=== PATIENT | male | born 1970 | race Caucasian/White ===

== ENCOUNTER 2017-10-16 10:25 | Emergency (ER) | payer MEDICARE, MEDICAID ==
[2017-10-16] MEDS ORDERED: Ondansetron INJ* 2 MG/ML VIAL IV ONE (11:14)
[2017-10-16] MEDS ORDERED: NS 0.9% 1000 ML* 1,000 ML IV ONE ×2 (11:14→13:56)
[2017-10-16 12:41] LABS: ABS Basophils 0 10^3/ul (0-0.2); ABS Eosinophils 0 10^3/ul (0-0.6); ABS Lymphocytes 1.1 10^3/ul (1.0-4.8); ABS Monocytes 0.6 10^3/ul (0-0.8); ABS Neutrophils 4.3 10^3/ul (1.5-7.7); ABS Nucleated RBC 0 10^3/ul; Eosinophil % 0.5 % (0-6); Hematocrit 41 % (42-52); Lymphocyte % 17.7 % (25-47); Mean Corpuscular HGB Conc 35 g/dl (31-36); Mean Corpuscular Hemoglobin 31 pg (27-31); Mean Corpuscular Volume 91 fL (80-94); Mean Platelet Volume 8 um3 (7.4-10.4); Nucleated Red Blood Cells % 0.1; Platelet Count 143 10^3/ul (150-450); Red Blood Count 4.48 10^6/ul (4.0-5.4); Red Cell Distribution Width 14 % (10.5-15); White Blood Count 5.9 10^3/ul (3.5-10.8)
--- NOTE | 2017-10-16 12:55 | RAD ---
Indication: Cough. Single frontal view of the chest performed at 1235 hours was reviewed. Comparison is made with previous exam dated February 10, 2015. No mediastinal shift is noted. Heart is of normal size and configuration. Lung winters appear clear. IMPRESSION: NO ACTIVE CARDIOPULMONARY DISEASE IS NOTED.
[2017-10-16 13:10] LABS: EGFR Non-African American 67.1 (>60)
[2017-10-16 14:25] LABS: Urine Appearance Clear; Urine Blood Negative (Negative); Urine Color Yellow; Urine Ketones Negative (Negative); Urine Protein Negative (Negative); Urine Specific Gravity 1.003 (1.010-1.030); Urine Urobilinogen Negative (Negative)
--- NOTE | 2017-10-16 17:11 | ED ---
Donna Lara Thomas, scribed for Aguila Sinclair MD on 10/16/17 at 1141 . Syncope/Near Syncope - HPI Summary HPI Summary: The patient is a 47 year old male complaining of an episode of syncope that occurred this morning. The patient additionally complains of a cough, nausea, runny nose and fatigue. The patient notes that he has received a flu shot. - History Of Current Complaint Chief Complaint: EDSyncope Time Seen by Provider: 10/16/17 10:40 Hx Obtained From: Patient Onset/Duration: Sudden Onset Aggravating Factor(s): Nothing Alleviating Factor(s): Nothing Associated Signs And Symptoms: Weakness, Other - nausea and cough - Allergies/Home Medications Allergies/Adverse Reactions: Allergies Allergy/AdvReac Type Severity Reaction Status Date / Time No Known Allergies Allergy Verified 10/16/17 11:02 PMH/Surg Hx/FS Hx/Imm Hx Endocrine/Hematology History: Denies: Hx Anticoagulant Therapy, Hx Diabetes, Hx Thyroid Disease, Other Endocrine/Hematological Disorders Cardiovascular History: Denies: Hx Hypertension, Hx Pacemaker/ICD, Other Cardiovascular Problems/ Disorders Respiratory History: Denies: Hx Asthma, Hx Chronic Obstructive Pulmonary Disease (COPD), Other Respiratory Problems/Disorders GI History: Denies: Other GI Disorders History: Denies: Hx Renal Disease, Other Problems/Disorders Musculoskeletal History: Reports: Hx Scoliosis - pt states he has scoliosis Denies: Other Musculoskeletal History Sensory History: Reports: Hx Contacts or Glasses Denies: Other Sensory Impairments Opthamlomology History: Reports: Hx Contacts or Glasses Denies: Other Sensory Impairments Neurological History: Denies: Hx Dementia, Hx Seizures, Other Neuro Impairments/Disorders Psychiatric History: Reports: Hx Anxiety, Hx Depression, Hx Inpatient Treatment , Hx Community Mental Health Tx, Hx Suicide Attempt, Hx of Violent Episodes Against Others Denies: Hx Attention Deficit Hyperactivity Disorder, Hx Eating Disorder, Hx Panic Disorder, Hx Post Traumatic Stress Disorder, Hx Schizophrenia, Hx Bipolar Disorder, Hx Substance Abuse, Other Psychiatric Issues/Disorders - Surgical History Hx Anesthesia Reactions: No Infectious Disease History: No Infectious Disease History: Denies: Hx Clostridium Difficile, Hx Hepatitis, Hx Human Immunodeficiency Virus (HIV), Traveled Outside the [place] in Last 30 Days - Family History Known Family History: Positive: Other - Patient denies relevant FHx - Social History Alcohol Use: None Substance Use Type: Reports: None Smoking Status (MU): Never Smoked Tobacco Review of Systems Positive: Fatigue Positive: Nasal Discharge Positive: Cough Positive: Nausea All Other Systems Reviewed And Are Negative: Yes Physical Exam - Summary Physical Exam Summary: Appearance: The patient is well-nourished in no acute distress and in no acute pain. Skin: The skin is warm and dry and skin is pale. HEENT: ~The head is normocephalic and atraumatic. The pupils are equal and reactive. The conjunctivae are clear and without drainage. ~Nares are patent and without drainage. ~Mouth reveals dry mucous membranes and the throat is without erythema and exudate. ~The external ears are intact. The ear canals are patent and without drainage. The tympanic membranes are intact. Neck: the neck is supple with full range of motion and non-tender. There are no carotid bruits. ~There is no neck vein distension. Respiratory: Chest is non-tender. ~Lungs are clear to auscultation and breath sounds are symmetrical and equal. Cardiovascular: Heart is tachycardic. There is regular rhythm. ~There is no murmur or rub auscultated. ~~There is no peripheral edema and pulses are symmetrical and equal. Abdomen: The abdomen is soft and non-tender. ~There are normal bowel sounds heard in all four quadrants and there is no organomegaly palpated. Musculoskeletal: There is no back tenderness noted. ~Extremities are non-tender with full range of motion. ~There is good capillary refill. ~There is no peripheral edema or calf tenderness elicited. Neurological: Patient is alert and oriented to person, place and time. ~The patient has symmetrical motor strength in all four extremities. ~Cranial nerves are grossly intact. Deep tendon reflexes are symmetrical and equal in all four extremities. Psychiatric: The patient has an appropriate affect and does not exhibit any anxiety or depression. Triage Information Reviewed: Yes Vital Signs On Initial Exam: Initial Vitals Pulse Resp BP Pulse Ox 97 24 92/68 90 10/16/17 10:25 10/16/17 10:25 10/16/17 10:25 10/16/17 10:25 Vital Signs Reviewed: Yes Diagnostics - Vital Signs Vital Signs Temp Pulse Resp BP Pulse Ox 10/16/17 11:01 87 22 92 10/16/17 11:00 90/63 10/16/17 10:45 111 24 92/80 92 10/16/17 10:28 96.6 F 95 15 92/68 91 10/16/17 10:25 97 24 92/68 90 - Laboratory Lab Results: Lab Results 10/16/17 Range/Units 10:55 Influenza A (Rapid) Negative (Negative) Influenza B (Rapid) Negative (Negative) Result Diagrams: 10/16/17 12:25 10/16/17 12:25 Lab Statement: Any lab studies that have been ordered have been reviewed, and results considered in the medical decision making process. - Radiology CXR Xray Interpretation: No Acute Changes - NO ACTIVE CARDIOPULMONARY DISEASE IS NOTED. Dr. Sinclair has reviewed this report. Radiology Interpretation Completed By: Radiologist Course/Dx Course Of Treatment: Mr. Mercedes had a syncopal episode at the store. He has not felt well for a day or so with a decreased appetite. He was tachycardic and pale on arrival. His W/U was WNL and he improved with some IV NS. This is likely viral. - Diagnoses Provider Diagnoses: Viral syndrome, Dehydration Discharge - Discharge Plan Condition: Stable Disposition: HOME Patient Education Materials: Dehydration (ED), Viral Syndrome (ED) Referrals: Chace Covington MD [Primary Care Provider] - 3 Days Additional Instructions: Follow up with your primary care physician in three days. Return to the emergency department for any new or worsening symptoms. The documentation as recorded by the Donna sneed Thomas accurately reflects the service I personally performed and the decisions made by , Aguila Sinclair MD.
[2017-10-16 18:29] VITALS: BP 119/79
--- NOTE | 2017-10-18 11:57 | ED ---
Progress - Progress Note Progress Note: Patient's final urine culture reveals 1-10,000 strep group B. He was diagnosed with a viral syndrome and no urinary symptoms, fever, white count, belly pain or flank pain while here. Discharged without medications. Do not feel this requires treatment at this time. Course/Dx - Course Course Of Treatment: Mr. Mercedes had a syncopal episode at the store. He has not felt well for a day or so with a decreased appetite. He was tachycardic and pale on arrival. His W/U was WNL and he improved with some IV NS. This is likely viral. - Diagnoses Provider Diagnoses: Viral syndrome, Dehydration
== END 2017-10-16 16:32 | disposition home or self-care (01) ==
LOC: ED 10:25
DX: B34.9 Viral infection, unspecified (principal); E86.0 Dehydration
CPT/HCPCS: 36415; 71045; 80053; 81003; 81015; 85025; 86140; 87077; 87086; 87502; 96374; 99284; J2405

== ENCOUNTER → 2018-06-21 17:02 | Emergency (ER) | payer MEDICARE, MEDICAID ==
--- NOTE | 2018-06-21 18:26 | RAD ---
EXAM: CT Abdomen and Pelvis Without Intravenous Contrast EXAM DATE/TIME: 06/21/2018 6:14 PM CLINICAL HISTORY: 48 years old, male; Pain; Abdominal pain; Localized; Lower; Additional info: Flank pain eval for stone TECHNIQUE: Axial computed tomography images of the abdomen and pelvis without intravenous contrast. All CT scans at this facility use at least one of these dose optimization techniques: automated exposure control; mA and/or kV adjustment per patient size (includes targeted exams where dose is matched to clinical indication); or iterative reconstruction. Coronal and sagittal reformatted images were created and reviewed. COMPARISON: No relevant prior studies available. FINDINGS: Lower thorax: There is a small hiatal hernia. ABDOMEN: Liver: Normal. No mass. Gallbladder and bile ducts: There is cholelithiasis without pericholecystic inflammatory change. Pancreas: Normal. No ductal dilation. Spleen: There is borderline splenomegaly. Adrenals: Normal. No mass. Kidneys and ureters: Normal. No hydronephrosis. Stomach and bowel: There is colonic diverticulosis without evidence for acute diverticulitis. Appendix: No evidence of appendicitis. PELVIS: Bladder: Unremarkable as visualized. 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 ABDOMEN and PELVIS: Intraperitoneal space: Normal. No free air. No significant fluid collection. Bones/joints: No acute fracture. No dislocation. Soft tissues: Unremarkable. Vasculature: There are calcified phleboliths in the pelvis. Lymph nodes: Normal. No enlarged lymph nodes. IMPRESSION: 1. There is a small hiatal hernia. 2. There is cholelithiasis without pericholecystic inflammatory change. 3. There is colonic diverticulosis without evidence for acute diverticulitis. 4. 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 5. No visible renal , ureteral or bladder calculi. To contact [facility] with a general question: Operations Center - [phone] For direct physician to physician contact: Physician Hotline - [phone] [facility] ([facility] Facility ID #[id number])
[2018-06-21 18:29] LABS: ABS Basophils 0 10^3/ul (0-0.2); ABS Eosinophils 0 10^3/ul (0-0.6); ABS Lymphocytes 0.8 10^3/ul (1.0-4.8); ABS Monocytes 0.6 10^3/ul (0-0.8); ABS Neutrophils 4.4 10^3/ul (1.5-7.7); ABS Nucleated RBC 0 10^3/ul; Eosinophil % 0.1 % (0-6); Hematocrit 40 % (42-52); Hemoglobin 14.2 g/dl (14.0-18.0); Lymphocyte % 14.2 % (25-47); Mean Corpuscular HGB Conc 35 g/dl (31-36); Mean Corpuscular Hemoglobin 33 pg (27-31); Mean Corpuscular Volume 92 fL (80-94); Mean Platelet Volume 8.5 um3 (7.4-10.4); Nucleated Red Blood Cells % 0.1; Platelet Count 144 10^3/ul (150-450); Red Blood Count 4.35 10^6/ul (4.00-5.40); Red Cell Distribution Width 14 % (10.5-15); White Blood Count 5.8 10^3/ul (3.5-10.8)
[2018-06-21 18:38] LABS: INR 1.21 (0.77-1.02)
--- NOTE | 2018-06-21 18:42 | ED ---
GI/ HPI - HPI Summary HPI Summary: A 48 y/o male presents to the ED c/o an episode of hematuria today. He also c/o dysuria, mild back and abd pain. He went to Family Medicine and gave a urine sample, and was told he has no infection. He is not and has not been sexually active and lives on his own. He states that he is under stress but has no SI. Denies any previous hx of kidney stones. - History of Current Complaint Chief Complaint: EDUrogenitalProblems Time Seen by Provider: 06/21/18 17:37 Stated Complaint: BLOOD IN URINE Hx Obtained From: Patient Onset/Duration: Started Hours Ago, Still Present Timing: Constant Severity: Moderate Current Severity: Moderate Pain Intensity: 4 - out of 10 Location of Pain: Epigastric Pain Radiates to: Back Associated Signs and Symptoms: Positive: Back Pain, Hematuria, Dysuria, Abdominal Pain - Allergy/Home Medications Allergies/Adverse Reactions: Allergies Allergy/AdvReac Type Severity Reaction Status Date / Time No Known Allergies Allergy Verified 06/21/18 17:48 PMH/Surg Hx/FS Hx/Imm Hx Previously Healthy: No Endocrine/Hematology History: Denies: Hx Anticoagulant Therapy, Hx Diabetes, Hx Thyroid Disease, Other Endocrine/Hematological Disorders Cardiovascular History: Denies: Hx Hypertension, Hx Pacemaker/ICD, Other Cardiovascular Problems/ Disorders Respiratory History: Denies: Hx Asthma, Hx Chronic Obstructive Pulmonary Disease (COPD), Other Respiratory Problems/Disorders GI History: Denies: Other GI Disorders History: Denies: Hx Renal Disease, Other Problems/Disorders Musculoskeletal History: Reports: Hx Scoliosis - pt states he has scoliosis Denies: Other Musculoskeletal History Sensory History: Reports: Hx Contacts or Glasses Denies: Other Sensory Impairments Opthamlomology History: Reports: Hx Contacts or Glasses Denies: Other Sensory Impairments Neurological History: Denies: Hx Dementia, Hx Seizures, Other Neuro Impairments/Disorders Psychiatric History: Reports: Hx Anxiety, Hx Depression, Hx Inpatient Treatment , Hx Community Mental Health Tx, Hx Suicide Attempt, Hx of Violent Episodes Against Others Denies: Hx Attention Deficit Hyperactivity Disorder, Hx Eating Disorder, Hx Panic Disorder, Hx Post Traumatic Stress Disorder, Hx Schizophrenia, Hx Bipolar Disorder, Hx Substance Abuse, Other Psychiatric Issues/Disorders - Surgical History Hx Anesthesia Reactions: No Infectious Disease History: No Infectious Disease History: Denies: Hx Clostridium Difficile, Hx Hepatitis, Hx Human Immunodeficiency Virus (HIV), Traveled Outside the [place] in Last 30 Days - Family History Known Family History: Positive: Other - Patient denies relevant FHx - Social History Occupation: Disabled Lives: Alone Alcohol Use: None Substance Use Type: Reports: None Smoking Status (MU): Never Smoked Tobacco Review of Systems Negative: Fever Positive: Abdominal Pain Positive: dysuria, hematuria Positive: Myalgia - back pain Psychological: Other - neg: SI All Other Systems Reviewed And Are Negative: Yes Physical Exam - Summary Physical Exam Summary: GENERAL: Patient is a well-developed and nourished male who is lying comfortable in the stretcher. Patient is not in any acute respiratory distress. HEAD AND FACE: Normocephalic EYES: PERRLA, EOMI x 2. EARS: Hearing grossly intact. MOUTH: Oropharynx within normal limits. NECK: Supple, trachea is midline, no adenopathy, no JVD, no carotid bruit. CHEST: Symmetric, no tenderness at palpation LUNGS: Clear to auscultation bilaterally. No wheezing or crackles. CVS: Regular rate and rhythm, S1 and S2 present, no murmurs or gallops appreciated. ABDOMEN: Soft, non-tender. Bowel sounds are normal. No abdominal abnormal pulsations. EXTREMITIES: Full ROM in all major joints, no edema, no cyanosis or clubbing. NEURO: Alert and oriented x 3. No acute neurological deficits. Speech is normal and follows commands. SKIN: Dry and warm Triage Information Reviewed: Yes Vital Signs On Initial Exam: Initial Vitals Temp Pulse Resp BP Pulse Ox 97.5 F 92 16 130/80 99 06/21/18 17:06 06/21/18 17:06 06/21/18 17:06 06/21/18 17:06 06/21/18 17:06 Vital Signs Reviewed: Yes Diagnostics - Vital Signs Vital Signs Temp Pulse Resp BP Pulse Ox 06/21/18 17:06 97.5 F 92 16 130/80 99 - Laboratory Lab Results: Lab Results 06/21/18 06/21/18 Range/Units 17:57 18:06 WBC 5.8 (3.5-10.8) 10^3/ul RBC 4.35 (4.00-5.40) 10^6/ul Hgb 14.2 (14.0-18.0) g/dl Hct 40 L (42-52) % MCV 92 (80-94) fL MCH 33 H (27-31) pg MCHC 35 (31-36) g/dl RDW 14 (10.5-15) % Plt Count 144 L (150-450) 10^3/ul MPV 8.5 (7.4-10.4) um3 Neut % (Auto) 75.6 (38-83) % Lymph % (Auto) 14.2 L (25-47) % Owen % (Auto) 9.9 H (0-7) % Eos % (Auto) 0.1 (0-6) % Baso % (Auto) 0.2 (0-2) % Absolute Neuts (auto) 4.4 (1.5-7.7) 10^3/ul Absolute Lymphs (auto) 0.8 L (1.0-4.8) 10^3/ul Absolute Monos (auto) 0.6 (0-0.8) 10^3/ul Absolute Eos (auto) 0 (0-0.6) 10^3/ul Absolute Basos (auto) 0 (0-0.2) 10^3/ul Absolute Nucleated RBC 0 10^3/ul Nucleated RBC % 0.1 Blood Type A Positive Antibody Screen Pending Result Diagrams: 06/21/18 17:57 06/21/18 17:57 Lab Statement: Any lab studies that have been ordered have been reviewed, and results considered in the medical decision making process. - CT Abdomen/pelvis CT Interpretation Completed By: Radiologist - There is a small hiatal hernia. This report has been reviewed by the ED physician. Re-Evaluation - Re-Evaluation 1 Re-Evaluation Time: 18:34 GIGU Course/Dx - Course Course Of Treatment: A 48 y/o male presents to the ED c/o hematuria since this morning. Workup is remarkable with an abd/pel CT showing a small hiatal hernia. The pt was diagnosed with high riding testicle and hematuria. The patient will be discharged. I discussed results with patient and he reports feeling better. He is hemodynamically stable and safe for discharge. Strict return precautions given and he will otherwise follow up with his PCP. - Diagnoses Provider Diagnoses: High scrotal testicle, Hematuria Discharge - Sign-Out/Discharge Documenting (check all that apply): Patient Departure - DC - Discharge Plan Condition: Stable Disposition: HOME Prescriptions: Ciprofloxacin HCl [Cipro] 500 mg PO BID #14 tablet Patient Education Materials: Orchiopexy for Undescended Testicle (DC), Hematuria (ED) Referrals: Chace Covington MD [Primary Care Provider] - (1-3 days.) Julio Serna MD [Medical Doctor] - (1-3 days) Additional Instructions: Follow up with your primary care physician in 1-3 days. RETURN TO THE EMERGENCY DEPARTMENT FOR CHANGING OR WORSENING SYMPTOMS. Follow up with with Dr. Serna, urology, in 1-3 days. - Billing Disposition and Condition Condition: STABLE Disposition: Home - Attestation Statements Document Initiated by Scribe: Yes Documenting Scribe: Luis Antonio Escobar Provider For Whom Baljit is Documenting (Include Credential): Crystal Rothman MD Scribe Attestation: Luis Antonio Lara, scribed for Crystal Rothman MD on 06/22/18 at 2008. Scribe Documentation Reviewed: Yes Provider Attestation: The documentation as recorded by the Luis Antonio sneed accurately reflects the service I personally performed and the decisions made by , Jose Rothman MD
[2018-06-21 18:48] LABS: EGFR Non-African American 80.1 (>60)
[2018-06-21 18:58] LABS: Urine Appearance Clear; Urine Blood 3+ (Negative); Urine Color Yellow; Urine Ketones Negative (Negative); Urine Protein Negative (Negative); Urine Red Blood Cell 3+(>10/hpf) (Absent); Urine Specific Gravity 1.003 (1.010-1.030); Urine Urobilinogen Negative (Negative); Urine White Blood Cell 1+(6-10/hpf) (Absent)
[2018-06-21 19:38] VITALS: BP 120/76
== END | disposition home or self-care (01) ==
LOC: ED 17:02
DX: Q53.13 Unilateral high scrotal testis (principal); R31.9 Hematuria, unspecified; R30.0 Dysuria; M54.9 Dorsalgia, unspecified; K44.9 Diaphragmatic hernia without obstruction or gangrene; K80.20 Calculus of gallbladder without cholecystitis without obstruction; K57.30 Diverticulosis of large intestine without perforation or abscess without bleeding
CPT/HCPCS: 36415; 74176; 80053; 81003; 81015; 85025; 85610; 85730; 86140; 86850; 86900; 86901; 87086; 99282

== ENCOUNTER 2018-08-24 00:39 | Emergency (ER) | payer MEDICARE, MEDICAID ==
--- NOTE | 2018-08-24 00:59 | ED ---
GI/ HPI - HPI Summary HPI Summary: 48-year-old male presents with hematuria today. He states he's had this before. States has been follow-up with urology and will having a scope next month. He states he's been having pain with hematuria today. He states he had one episode today. One episode a month ago of hematuria. He is not sexually active. He has a high riding testicle. He denies any testicular pain. He states his lower abdominal pain when he urinates. No flank pain. No fevers. No nausea or vomiting. Denies any history of kidney stones. Is not on blood thinners. denies any rectal pain. no diarrhea or constipation. is not passing any clots. states feels like he is not retaining any urine. - History of Current Complaint Chief Complaint: EDUrogenitalProblems Time Seen by Provider: 08/24/18 00:45 Stated Complaint: UROGENITAL PROBLEMS Pain Intensity: 8 - Allergy/Home Medications Allergies/Adverse Reactions: Allergies Allergy/AdvReac Type Severity Reaction Status Date / Time No Known Allergies Allergy Verified 08/24/18 00:44 PMH/Surg Hx/FS Hx/Imm Hx Endocrine/Hematology History: Denies: Hx Anticoagulant Therapy, Hx Diabetes, Hx Thyroid Disease, Other Endocrine/Hematological Disorders Cardiovascular History: Denies: Hx Hypertension, Hx Pacemaker/ICD, Other Cardiovascular Problems/ Disorders Respiratory History: Denies: Hx Asthma, Hx Chronic Obstructive Pulmonary Disease (COPD), Other Respiratory Problems/Disorders GI History: Denies: Other GI Disorders History: Denies: Hx Renal Disease, Other Problems/Disorders Musculoskeletal History: Reports: Hx Scoliosis - pt states he has scoliosis Denies: Other Musculoskeletal History Sensory History: Reports: Hx Contacts or Glasses Denies: Other Sensory Impairments Opthamlomology History: Reports: Hx Contacts or Glasses Denies: Other Sensory Impairments Neurological History: Denies: Hx Dementia, Hx Seizures, Other Neuro Impairments/Disorders Psychiatric History: Reports: Hx Anxiety, Hx Depression, Hx Inpatient Treatment , Hx Community Mental Health Tx, Hx Suicide Attempt, Hx of Violent Episodes Against Others Denies: Hx Attention Deficit Hyperactivity Disorder, Hx Eating Disorder, Hx Panic Disorder, Hx Post Traumatic Stress Disorder, Hx Schizophrenia, Hx Bipolar Disorder, Hx Substance Abuse, Other Psychiatric Issues/Disorders - Surgical History Hx Anesthesia Reactions: No Infectious Disease History: No Infectious Disease History: Denies: Hx Clostridium Difficile, Hx Hepatitis, Hx Human Immunodeficiency Virus (HIV), Traveled Outside the [place] in Last 30 Days - Family History Known Family History: Positive: Other - Patient denies relevant FHx - Social History Alcohol Use: None Substance Use Type: Reports: None Smoking Status (MU): Never Smoked Tobacco Review of Systems Negative: Fever Negative: Chest Pain Negative: Shortness Of Breath Negative: Abdominal Pain, Vomiting, Nausea Positive: dysuria, hematuria. Negative: flank pain All Other Systems Reviewed And Are Negative: Yes Physical Exam Triage Information Reviewed: Yes Vital Signs On Initial Exam: Initial Vitals Temp Pulse Resp BP Pulse Ox 98.1 F 96 16 133/90 97 08/24/18 00:40 08/24/18 00:40 08/24/18 00:40 08/24/18 00:40 08/24/18 00:40 Vital Signs Reviewed: Yes Appearance: Positive: Well-Appearing Skin: Positive: Warm, Dry Head/Face: Positive: Normal Head/Face Inspection Eyes: Positive: Normal, Conjunctiva Clear ENT: Positive: Pharynx normal Respiratory/Lung Sounds: Positive: Clear to Auscultation, Breath Sounds Present Cardiovascular: Positive: Normal, RRR Abdomen Description: Positive: Nontender, Soft. Negative: CVA Tenderness (R), CVA Tenderness (L) Bowel Sounds: Positive: Present Musculoskeletal: Positive: Normal Neurological: Positive: Normal Psychiatric: Positive: Normal Diagnostics - Vital Signs Vital Signs Temp Pulse Resp BP Pulse Ox 08/24/18 00:43 96 133/90 97 08/24/18 00:40 98.1 F 96 16 133/90 97 - Laboratory Result Diagrams: 08/24/18 01:01 08/24/18 01:01 Lab Statement: Any lab studies that have been ordered have been reviewed, and results considered in the medical decision making process. GIGU Course/Dx - Course Course Of Treatment: 48-year-old male presents with hematuria today. He states he's had this before. States has been follow-up with urology and will having a scope next month. He states he's been having pain with hematuria today. He states he had one episode today. One episode a month ago of hematuria. He is not sexually active. He has a high riding testicle. He denies any testicular pain. He states his lower abdominal pain when he urinates. No flank pain. No fevers. No nausea or vomiting. Denies any history of kidney stones. Is not on blood thinners. On exam nontender abdomen and no CVA tenderness. white blood cell count normal. hemoglobin is 13.8 which is less than normal. bun and cr normal. urine shows wbc and rbc so will treat for potential uti with bactrim. told to follow up with urology. patient understand and agrees with plan. - Diagnoses Differential Diagnoses - Male: Pyelonephritis, Ureteral Calculi, Urinary Tract Infection Provider Diagnoses: Hematuria, UTI (urinary tract infection) Discharge - Sign-Out/Discharge Documenting (check all that apply): Patient Departure - Discharge Plan Condition: Good Disposition: HOME Prescriptions: Sulfamethox/Trimethoprim DS* [Bactrim DS 800/160 TAB*] 1 tab PO BID #13 tab Patient Education Materials: Urinary Tract Infection in Men (ED) Referrals: Chace Covington MD [Primary Care Provider] - Julio Serna MD [Medical Doctor] - Additional Instructions: take bactrim twice a day for 7 days, first dose given in ED Drink plenty of fluids Follow up with urology Return to ED if unable to urinate, develop fever, or any new or worsening symptoms - Billing Disposition and Condition Condition: GOOD Disposition: Home
[2018-08-24 01:11] LABS: ABS Basophils 0.1 10^3/ul (0-0.2); ABS Eosinophils 0.5 10^3/ul (0-0.6); ABS Monocytes 0.5 10^3/ul (0-0.8); ABS Neutrophils 2.2 10^3/ul (1.5-7.7); ABS Nucleated RBC 0 10^3/ul; Eosinophil % 9.6 %; Hematocrit 41 % (42-52); Hemoglobin 13.8 g/dl (14.0-18.0); Lymphocyte % 37.4 %; Mean Corpuscular HGB Conc 34 g/dl (31-36); Mean Corpuscular Hemoglobin 31 pg (27-31); Mean Corpuscular Volume 92 fL (80-94); Mean Platelet Volume 7.8 fL (7.4-10.4); Nucleated Red Blood Cells % 0.1; Platelet Count 218 10^3/ul (150-450); Red Blood Count 4.44 10^6/ul (4.00-5.40); Red Cell Distribution Width 14 % (10.5-15); White Blood Count 5.3 10^3/ul (3.5-10.8)
[2018-08-24 01:26] LABS: Albumin 3.8 g/dL (3.2-5.2); Albumin/Globulin Ratio 1.2 (1-3); BUN/Creatinine Ratio 7.5 (8-20); Calcium 8.5 mg/dL (8.6-10.3); EGFR Non-African American 87.1 (>60); Globulin 3.1 g/dL (2-4); Total Bilirubin 0.4 mg/dL (0.2-1.0); Total Protein 6.9 g/dL (6.4-8.9)
[2018-08-24 01:46] LABS: Urine Appearance Clear; Urine Bacteria Absent (Absent); Urine Bilirubin Negative (Negative); Urine Blood 3+ (Negative); Urine Color Yellow; Urine Glucose Negative (Negative); Urine Ketones Negative (Negative); Urine Nitrite Negative (Negative); Urine Protein 1+(30 mg/dL) (Negative); Urine Red Blood Cell 3+(>10/hpf) (Absent); Urine Specific Gravity 1.018 (1.010-1.030); Urine Urobilinogen Negative (Negative); Urine White Blood Cell 3+(>20/hpf) (Absent)
[2018-08-24] MEDS ORDERED: Sulfamethox/Trimethoprim DS 800/160* TAB PO ONE (01:47)
[2018-08-24 01:49] LABS: Potassium 3.8 mmol/L (3.5-5.0)
[2018-08-24 02:43] VITALS: BP 115/84
== END 2018-08-24 02:42 | disposition home or self-care (01) ==
LOC: ED 00:39
DX: N39.0 Urinary tract infection, site not specified (principal); R31.9 Hematuria, unspecified
CPT/HCPCS: 36415; 80053; 81003; 81015; 85025; 87086; 99283; A9270-GY

== ENCOUNTER 2019-08-30 05:36 | Emergency (ER) | payer MEDICARE, MEDICAID ==
--- NOTE | 2019-08-30 05:58 | ED ---
Psychiatric Complaint - HPI Summary HPI Summary: 49-year-old male with significant past medical history of anxiety and depression with 1 suicide attempt in the past the overdose with prescribed pills presents to emergency department today stating "I've been very overwhelmed as of late. I just would like to talk with someone." Patient denies any SI/HI. Patient states he is overwhelmed due to his sister's health concerns and he is worried "if she passes away I will have no one." Patient endorses trouble sleeping as well as decrease in appetite. Patient feels healthy otherwise and denies physical pain, chest pain, shortness of breath, abdominal pain, pain with urination, rash, fever. Patient was recently diagnosed with UTI which is treated with ciprofloxacin patient reports no symptoms. Patient denies recent alcohol use, smoking, recreational drug use. Surgical history and family history noncontributory. - History Of Current Complaint Chief Complaint: EDPsychosocial Time Seen by Provider: 08/30/19 05:46 Hx Obtained From: Patient Onset/Duration: Gradual Onset Timing: Constant Severity Initially: Moderate Severity Currently: Moderate Character: Depressed, Anxious Aggravating Factor(s): Recent Stress Alleviating Factor(s): Medication Associated Signs And Symptoms: Positive: Sleep Disturbance, Appetite Change Related History: Positive For: Prior Psychiatric Issues Has Suicidal: Reports: Has Prior Attempt(s) - OD on "pills". Denies: Thoughts, With A Plan, Demonstrates Gesture Has Homicidal: Denies: Thoughts, With A Plan, Demonstrates Gesture - Risk Factor(s) Completed Suicide Risk Factors: Male, White [place], Past Suicide Attempt - Allergies/Home Medications Allergies/Adverse Reactions: Allergies Allergy/AdvReac Type Severity Reaction Status Date / Time No Known Allergies Allergy Verified 08/30/19 05:44 Home Medications: Home Medications Duloxetine HCl 20 mg PO DAILY 08/30/19 [History Confirmed 08/30/19] PMH/Surg Hx/FS Hx/Imm Hx Endocrine/Hematology History: Denies: Hx Anticoagulant Therapy, Hx Diabetes, Hx Thyroid Disease, Other Endocrine/Hematological Disorders Cardiovascular History: Denies: Hx Hypertension, Hx Pacemaker/ICD, Other Cardiovascular Problems/ Disorders Respiratory History: Denies: Hx Asthma, Hx Chronic Obstructive Pulmonary Disease (COPD), Other Respiratory Problems/Disorders GI History: Denies: Other GI Disorders History: Denies: Hx Renal Disease, Other Problems/Disorders Musculoskeletal History: Reports: Hx Scoliosis - pt states he has scoliosis Denies: Other Musculoskeletal History Sensory History: Reports: Hx Contacts or Glasses Denies: Other Sensory Impairments Opthamlomology History: Reports: Hx Contacts or Glasses Denies: Other Sensory Impairments Neurological History: Denies: Hx Dementia, Hx Seizures, Other Neuro Impairments/Disorders Psychiatric History: Reports: Hx Anxiety, Hx Depression, Hx Inpatient Treatment , Hx Community Mental Health Tx, Hx Suicide Attempt, Hx of Violent Episodes Against Others Denies: Hx Attention Deficit Hyperactivity Disorder, Hx Eating Disorder, Hx Panic Disorder, Hx Post Traumatic Stress Disorder, Hx Schizophrenia, Hx Bipolar Disorder, Hx Substance Abuse, Other Psychiatric Issues/Disorders - Surgical History Hx Anesthesia Reactions: No Infectious Disease History: No Infectious Disease History: Denies: Hx Clostridium Difficile, Hx Hepatitis, Hx Human Immunodeficiency Virus (HIV), Traveled Outside the [place] in Last 30 Days - Family History Known Family History: Positive: Other - Patient denies relevant FHx - Social History Alcohol Use: None Substance Use Type: Reports: None Smoking Status (MU): Never Smoked Tobacco Review of Systems Constitutional: Negative Eyes: Negative ENT: Negative Cardiovascular: Negative Respiratory: Negative Gastrointestinal: Negative Genitourinary: Negative Musculoskeletal: Negative Skin: Negative Neurological: Negative Psychological: Normal All Other Systems Reviewed And Are Negative: Yes Physical Exam Triage Information Reviewed: Yes Vital Signs On Initial Exam: Initial Vitals Temp Pulse Resp BP Pulse Ox 97.6 F 94 17 137/94 97 08/30/19 05:38 08/30/19 05:38 08/30/19 05:38 08/30/19 05:38 08/30/19 05:38 Vital Signs Reviewed: Yes Appearance: Positive: Well-Appearing, No Pain Distress, Well-Nourished Skin: Positive: Warm, Skin Color Reflects Adequate Perfusion Eyes: Positive: EOMI, BERENICE ENT: Positive: Hearing grossly normal Respiratory/Lung Sounds: Positive: Clear to Auscultation, Breath Sounds Present Cardiovascular: Positive: RRR, S1, S2 Abdomen Description: Positive: Nontender, Soft. Negative: Distended, Guarding Bowel Sounds: Positive: Present Musculoskeletal: Positive: Strength/ROM Intact Neurological: Positive: Sensory/Motor Intact, Alert, Oriented to Person Place, Time, Normal Gait, Speech Normal Psychiatric: Positive: Normal, Affect/Mood Appropriate AVPU Assessment: Alert Procedures - Sedation Patient Received Moderate/Deep Sedation with Procedure: No Diagnostics - Vital Signs Vital Signs Temp Pulse Resp BP Pulse Ox 08/30/19 05:38 97.6 F 94 17 137/94 97 - Laboratory Lab Statement: Any lab studies that have been ordered have been reviewed, and results considered in the medical decision making process. Course/Dx - Course Course Of Treatment: Patient was evaluated in the emergency department for psychosocial complaint. Patient seen and examined his vitals are stable and he is afebrile. Patient had no medical complaints and desired to health consultation. Psychiatrist Dr. 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 He felt the patient is safe to go home with outpatient follow-up. Patient is to see his therapist this afternoon for further evaluation and management. - Differential Dx/Clinical Impression Differential Diagnosis/HQI/PQRI: Positive: Acute Psychosis, Anxiety, Depression Provider Diagnosis: Depressive disorder Discharge ED - Sign-Out/Discharge Documenting (check all that apply): Patient Departure - Discharge Plan Condition: Stable Disposition: HOME Patient Education Materials: Depression (DC), Anxiety (ED) Referrals: Chace Covington MD [Primary Care Provider] - Additional Instructions: Per completion of a mental health evaluation, you are cleared for release and do not require inpatient psychiatric hospitalization at this time. Please go to nearest emergency room or call 911 if safety concerns arise or condition worsens. Please follow up later today with Zachary Arreola at [facility].............. [phone] Important Phone Numbers: [facility] [phone] Suicide Prevention and Crisis Services........................ [phone] National Suicide Prevention Lifeline............................ 555-712-TQYS (9223) [facility]....................... [phone] Alcoholics Anonymous............................................... [facility].............. [phone] [facility] Police.............................................. [phone] - [facility] Disposition and Condition Condition: STABLE Disposition: Home
--- OUTSIDE RECORDS SUMMARY | 2019-08-30 06:41 | XMS REPORT ---
:1970 Author Organization [facility] Care Team Providers Name Role Phone Kishor Arreola Primary Care Physician Unavailable Allergies, Adverse Reactions, Alerts Allergy Code CodeSystem Reaction Severity Criticality Status Start Substance Date nkda Moderate Active Medications Medication Medication Medication Start Stop Route Dose Status Fill Code CodeSystem Date Date Instructions chlorpromazine 019243 RxNorm 2019- oral 25 mg 1 active Take 1 tablet 5-16 10-30 tablet three times three a day as times a needed for 30 day day(s) chlorpromazine 537731 RxNorm 2019- oral 25 mg completed for 30 1-08 05-16 tablet day(s) fluoxetine 782886 RxNorm oral 10 mg active for 30 8-22 capsule day(s) omeprazole 340133 RxNorm 2018 oral 20 mg active for 30 1-07 capsule, day(s) delayed release( DR/EC) duloxetine 868778 RxNorm 2019- oral 20 mg 2 completed 2 capsule 07-01 capsule, once a day delayed for 30 day(s) release( DR/EC) once a day Problems Problem Name Code CodeSystem Alternate Alternate Start End Status Narrative Code CodeSystem Date Date Recurrent 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 SNOMED-CT 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 disorder, current episode mild Relevant diagnostic tests/laboratory data Narrative No Information Procedures Procedure Code CodeSystem Target Date of Status Service Device Device Device Name Site Procedure Delivery Code Name UID Location Office or [id number] SNOMED-CT () 2018-11-27 complete Mental other 7 d Health- outpatient [place] visit for [address], management [place], of an [place], established [id number] patient, [phone] which requires at least 2 of these 3 vargas components: An expanded problem focused history; An expanded problem focused examination; Medical decision making of [facility] [place] [id number] SNOMED-CT () 2019-04-22 complete Mental other 6 d Health- outpatient [place] visit for [address], established [id number] patient, [phone] which requires at least 2 of these 3 vargas components: A problem focused history; A problem focused examination; [place] medical decision making. Counselin Office or [id number] SNOMED-CT () 2019-07-19 complete Mental other 6 d Health- outpatient [place] visit for [address], established [id number] patient, [id number] which requires at least 2 of these 3 vargas components: A problem focused history; A problem focused examination; [place] medical decision making. Counselin Office or [id number] SNOMED-CT () 2018-12-25 complete Mental other 8 d Health- outpatient [place] visit for [address], established [id number] patient, [id number] which requires at least 2 of these 3 vargas components: A detailed history; A detailed examination; Medical decision making of moderate complexity. Counseling and/o SNOMED-CT () 2019-04-17 complete Mental d [address], [id number] [id number] SNOMED-CT () 2019-02-20 complete Mental d Health[address], [id number] [id number] SNOMED-CT () 2019-02-27 complete Mental d Health[address], [id number] [id number] SNOMED-CT () 2019 complete Mental d Health[address], [id number] [phone] SNOMED-CT () 2019-03-21 complete Mental d Health[address], [id number] [phone] SNOMED-CT () 2019-03-20 complete Mental d Health[address], [id number] SNOMED-CT () 2019-07-03 complete Mental d Health[address], [id number] [id number] SNOMED-CT () 2019-08-06 complete Mental d Health[address], [id number] [phone] SNOMED-CT () 2019-05-08 complete Mental d [address], [id number] SNOMED-CT () 2019-05-15 complete Mental d Health[address], [id number] [id number] SNOMED-CT () 2019-05-22 complete Mental d [address], [id number] [id number] SNOMED-CT () 2019-05-29 complete Mental d [address], [id number] [id number] SNOMED-CT () 2019-06-12 complete Mental d [address], [id number] [id number] SNOMED-CT () 2019-06-19 complete Mental d [address], [id number] [id number] SNOMED-CT () 2019-01-16 complete Mental d [address], [id number] SNOMED-CT () 2019-01-25 complete Mental d Health[address], [id number] [id number] SNOMED-CT () 2019-02-06 complete Mental d Health[address], [id number] SNOMED-CT () 2018-12-05 complete Mental d [address], [id number] [id number] SNOMED-CT () 2018-12-12 complete Mental d [address], [id number] [id number] SNOMED-CT () 2018-12-19 complete Mental d [address], [id number] [id number] SNOMED-CT () 2019-03-27 complete Mental d [address], [id number] [id number] SNOMED-CT () 2019-07-17 complete Mental d [address], [id number] [id number] SNOMED-CT () 2019-07-23 complete Mental d [address], [id number] [phone] SNOMED-CT () 2019-07-31 complete Mental d [address], [id number] [id number] SNOMED-CT () 2019-08-07 complete Mental d [address], [id number] [id number] SNOMED-CT () 2019-01-09 [facility] Mental d [address], [id number] [id number] SNOMED-CT () 2019-02-15 [facility] Mental d [address], [id number] [id number] SNOMED-CT () 2019-04-10 [facility] Mental d [address], [id number] [phone] Encounters/Encounter Diagnoses Encounter Name Encounter Diagnosis Diagnosis Diagnosis Date of Service Code Code Name CodeSystem Diagnosis Delivery Location [facility] [id number] Recurrent SNOMED-CT 2019-08-07 Behavioral Individual 30 depressive Health min disorder, Clinic [address] [place], [place], [id number] Vital Signs No Information Social History Element Description Description Start End Code CodeSystem AdditionalInfo Date Date SexAssignedAtBirth Male 1970-0 M AdministrativeGender -12 Hospital Discharge Instructions Reason For Referral Medical Equipment FDA Assessments
--- OUTSIDE RECORDS SUMMARY | 2019-08-30 06:41 | XMS REPORT ---
:1970 Author Organization [facility] Care Team Providers Name Role Phone Kishor Arreola Primary Care Physician Unavailable Allergies, Adverse Reactions, Alerts Allergy Code CodeSystem Reaction Severity Criticality Status Start Substance Date nkda Moderate Active Medications Medication Medication Medication Start Stop Route Dose Status Fill Code CodeSystem Date Date Instructions omeprazole 205178 RxNorm 2017-08 oral 20 mg active for 30 1-07 capsule, day(s) delayed release( DR/EC) duloxetine 332890 RxNorm 2018- oral 20 mg 2 completed 2 capsule - capsule, once a day delayed for 30 day(s) release( DR/EC) once a day fluoxetine 496231 RxNorm oral 10 mg active for 30 8-22 capsule day(s) chlorpromazine 104437 RxNorm 2019- oral 25 mg 1 active Take 1 tablet 5-16 10-30 tablet three times three a day as times a needed for 30 day day(s) chlorpromazine 904833 RxNorm 2019- oral 25 mg completed for 30 1-08 05-16 tablet day(s) Problems Problem Name Code CodeSystem Alternate Alternate Start End Status Narrative Code CodeSystem Date Date Recurrent 36050371 SNOMED-CT 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 disorder, current episode mild Relevant diagnostic tests/laboratory data Narrative No Information Procedures Procedure Code CodeSystem Target Date of Status Service Device Device Device Name Site Procedure Delivery Code Name UID Location Office or [id number] SNOMED-CT () 2018-11-27 complete Mental other 7 d Health- outpatient [place] visit for [address], management [place], of an [place], established [id number] patient, [phone] which requires at least 2 of these 3 vargas components: An expanded problem focused history; An expanded problem focused examination; Medical decision making of access [facility] [place] Office or [id number] SNOMED-CT () 2019-04-22 complete Mental other 6 d Health- outpatient [place] visit for [address], [facility], established [id number] patient, [phone] which requires at least 2 of these 3 vargas components: A problem focused history; A problem focused examination; [place] medical decision making. Counselin Office or [id number] SNOMED-CT () 2018-12-25 complete Mental other 8 d Health- outpatient [place] visit for [address], [facility], established [id number] patient, [phone] which requires at least 2 of these 3 vargas components: A detailed history; A detailed examination; Medical decision making of moderate complexity. Counseling and/o SNOMED-CT () 2019-04-17 complete Mental d [address], [id number] [phone] SNOMED-CT () 2019-02-20 complete Mental d [address], [id number] [phone] SNOMED-CT () 2019-02-27 complete Mental d Health[address], 760753235 [phone] SNOMED-CT () 2019 complete Mental d [address], [id number] [phone] SNOMED-CT () 2019-03-21 complete Mental d [address], [id number] [phone] SNOMED-CT () 2019-03-20 complete Mental d Health[address], [id number] [phone] SNOMED-CT () 2018-12-05 complete Mental d Health[address], [id number] [id number] SNOMED-CT () 2018-12-12 complete Mental d [address], [id number] [id number] SNOMED-CT () 2018-12-19 complete Mental d Health[address], [id number] [id number] SNOMED-CT () 2019-06-19 complete Mental d [address], [id number] [phone] SNOMED-CT () 2019-07-03 complete Mental d [address], [id number] [phone] SNOMED-CT () 2019-01-09 complete Mental d [facility], [id number] [id number] SNOMED-CT () 2019-01-16 complete Mental d [address], [id number] [phone] SNOMED-CT () 2019-01-25 complete Mental d [address], [id number] [phone] SNOMED-CT () 2019-02-06 complete Mental d Health[address], [id number] [phone] SNOMED-CT () 2019-03-27 complete Mental d [address], [id number] [id number] SNOMED-CT () 2019-05-08 complete Mental d [address], [id number] [phone] SNOMED-CT () 2019-05-15 complete Mental d [address], [id number] [phone] SNOMED-CT () 2019-05-22 complete Mental d [address], [id number] [phone] SNOMED-CT () 2019-05-29 complete Mental d [address], 860285102 [phone] SNOMED-CT () 2019-06-12 complete Mental d [address], [id number] [id number] SNOMED-CT () 2019-02-15 complete Mental d [address], [id number] [id number] SNOMED-CT () 2019-04-10 complete Mental d [address], [id number] [phone] Encounters/Encounter Diagnoses Encounter Encounter Diagnosis Diagnosis Diagnosis Date of Service Name Code Code Name CodeSystem Diagnosis Delivery Location Non-[place] [id number] Recurrent SNOMED-CT 2019-07-10 Behavioral depressive Health disorder, Clinic , , current , episode mild Vital Signs No Information Social History Element Description Description Start End Code CodeSystem AdditionalInfo Date Date SexAssignedAtBirth Male 1970-0 M AdministrativeGender 13 Hospital Discharge Instructions Reason For Referral Medical Equipment FDA Assessments
[2019-08-30 07:05] VITALS: BP 130/88
== END 2019-08-30 07:04 | disposition home or self-care (01) ==
LOC: ED 05:36
DX: F32.9 Major depressive disorder, single episode, unspecified (principal); F41.9 Anxiety disorder, unspecified; Z79.899 Other long term (current) drug therapy
CPT/HCPCS: 99284

== ENCOUNTER 2023-02-08 04:02 | Inpatient (IN) ==
[2023-02-08 06:06] LABS: Urine Appearance Cloudy; Urine Bilirubin Negative (Negative); Urine Blood 2+ (Negative); Urine Color Yellow; Urine Glucose Negative (Negative); Urine Ketones Negative (Negative); Urine Nitrite Negative (Negative); Urine Protein Negative (Negative); Urine Specific Gravity 1.017 (1.002-1.030); Urine Urobilinogen Negative (Negative)
[2023-02-08 06:11] LABS: Urine Bacteria Absent (Absent); Urine Red Blood Cell 2+(6-10/hpf) (Absent); Urine Squamous Epithelial Cell Present (Absent); Urine White Blood Cell 1+(6-10/hpf) (Absent); Urine Yeast Present (Absent)
[2023-02-08 07:04] LABS: ABS Eosinophils 0.6 10^3/uL (0.0-0.5); ABS Lymphocytes 1.6 10^3/uL (1.0-4.8); ABS Monocytes 0.5 10^3/uL (0.0-1.1); ABS Neutrophils 2.6 10^3/uL (1.5-7.6); ABS Nucleated RBC 0.01 10^3/ul; Eosinophil % 10.7 %; Hematocrit 40.5 % (38-53); Hemoglobin 14.1 g/dL (13.2-16.3); Mean Corpuscular Hemoglobin 32.2 pg (27-33); Mean Platelet Volume 8.1 fL (7.5-11.2); Nucleated Red Blood Cells % 0.2 /100 WBC (0.0-0.4); Platelet Count 208 10^3/uL (150-450); Red Cell Distribution Width 15.1 % (12-17); White Blood Count 5.2 10^3/uL (3.6-10.2)
[2023-02-08 07:16] LABS: Acetaminophen < 15 mcg/mL; Alcohol, S < 13 mg/dL (<13); Salicylate < 2.50 mg/dL (<30)
[2023-02-08 07:36] LABS: Albumin 4.2 g/dL (3.2-5.2); Anion Gap 8 mmol/L (2-16); CO2 Carbon Dioxide 26 mmol/L (22-32); Calcium 8.6 mg/dL (8.6-10.3); Chloride 105 mmol/L (101-111); Potassium 3.9 mmol/L (3.5-5.0); Sodium 139 mmol/L (135-145)
[2023-02-08 07:36] LABS: Urine Benzodiazepine Screen None Detected (None Detect); Urine Cannabinoids Screen None Detected (None Detect); Urine Opiates Screen None Detected (None Detect)
[2023-02-08 07:42] LABS: ALT 26 U/L (7-52); AST 25 U/L (13-39); Albumin/Globulin Ratio 1.3 (1-3); Alkaline Phosphatase 63 U/L (35-149); Blood Urea Nitrogen 9 mg/dL (6-24); Creatinine, Serum 0.86 mg/dL (0.67-1.17); Globulin 3.2 g/dL (2-4); Glucose 105 mg/dL (70-100); Total Protein 7.4 g/dL (6.4-8.9); eGFR CKD-EPI 104.8 (>60)
[2023-02-08 07:48] LABS: TSH Ultra Thyroid Stim Horm 6.83 mcIU/mL (0.34-5.60)
[2023-02-08] MEDS ORDERED: Al Hydrox/Mg Hydrox/Simet LIQ 30 ML UDC PO PRN (08:12)
[2023-02-08] MEDS ORDERED: DULoxetine DR 20 mg CAP PO SCH ×2 (09:00→21:00)
[2023-02-08 09:16] LABS: Free T4 0.86 ng/dL (0.61-1.12)
[2023-02-08] MEDS: Vitamin THERAPEUTIC TAB PO SCH (11:13)
[2023-02-09] MEDS: Vitamin THERAPEUTIC TAB PO SCH (08:39)
[2023-02-09] MEDS: DULoxetine DR 20 mg CAP PO SCH (17:48)
[2023-02-10] MEDS: Vitamin THERAPEUTIC TAB PO SCH (07:43)
[2023-02-10] MEDS: DULoxetine DR 20 mg CAP PO SCH (17:51)
[2023-02-11] MEDS: Vitamin THERAPEUTIC TAB PO SCH (08:49)
[2023-02-11] MEDS: DULoxetine DR 20 mg CAP PO SCH (18:37)
[2023-02-12] MEDS: Vitamin THERAPEUTIC TAB PO SCH (09:16)
[2023-02-12] MEDS: DULoxetine DR 20 mg CAP PO SCH (17:41)
[2023-02-13] MEDS: Vitamin THERAPEUTIC TAB PO SCH (08:13)
[2023-02-13] MEDS: DULoxetine DR 20 mg CAP PO SCH (18:07)
[2023-02-14] MEDS: Vitamin THERAPEUTIC TAB PO SCH (08:48)
[2023-02-14] MEDS: DULoxetine DR 20 mg CAP PO SCH (17:58)
[2023-02-15] MEDS: Vitamin THERAPEUTIC TAB PO SCH (08:59)
[2023-02-15] MEDS: DULoxetine DR 20 mg CAP PO SCH (17:00)
[2023-02-16] MEDS: Vitamin THERAPEUTIC TAB PO SCH (08:01)
[2023-02-16 09:52] VITALS: BP 117/91
== END 2023-02-16 12:30 | disposition home or self-care (01) | DRG 883 ==
LOC: ED 04:02 → EDHOLD 08:12 → BSU 10:09
PROVIDERS: ADMIT Psychiatry & Neurology Psychiatry; ATTEND Psychiatry & Neurology Psychiatry